=== PATIENT | male | born 1985 | race Caucasian/White ===

== ENCOUNTER → 2023-11-06 | Outpatient (CLI) | payer OTHER ==
[2023-11-06 14:35] LABS: PLATELET COUNT, AUTOMATED 307 10^3/uL (150-450)
[2023-11-06 14:47] LABS: INR 0.96; PARTIAL THROMBOPLASTIN TIME 26.9 SECONDS (24.8-34.2); PROTHROMBIN TIME 12.5 SECONDS (12.5-14.5)
[2023-11-06 14:58] LABS: COLLAGEN EPINEPHRINE 143 SECONDS (74-162)
== END ==
LOC: M LAB 14:15
PROVIDERS: ATTEND Physician Assistant
DX: Z01.818 Encounter for other preprocedural examination (principal)